=== PATIENT | male | born 1950 | race Caucasian/White ===

== ENCOUNTER → 2017-08-11 | Outpatient (CLI) | payer MEDICARE ==
--- NOTE | 2017-08-11 18:00 | Diagnostic Imaging Report ---
Examination: MRI of the Brain without Contrast History: Right eye vision loss for 2 weeks ago, Parkinson's. Comparison studies: None Technique: Sagittal T2; axial DWI, FLAIR, MPGR, T1, Coronal FLAIR. Intravenous contrast: None Findings: Scalp: Normal in signal . No masses . Bone marrow: Normal in signal intensity. Extra-axial: No masses or fluid collections. Brain sulci: Mildly prominent. Ventricles: Mild compensatory dilatation. No hydrocephalus. Parenchyma: Minimal confluent periventricular and scattered foci of T2 FLAIR hyperintensity within the bilateral supratentorial white matter and suraj are mild chronic small vessel ischemic changes. No masses, hemorrhage, acute or chronic cortical ischemic insults. Suprasellar region: No abnormalities. Craniocervical junction: No abnormalities. Patent foramen magnum. No Chiari one malformation. Vessels: Normal flow-voids in the arteries and sinuses. Orbits: The orbits are normal. Incidental: Minimal mucosal thickening involving the bilateral ethmoid air cells. IMPRESSION: 1. No intracranial hemorrhage, acute infarct, mass or hydrocephalus. 2. Mild chronic small vessel ischemic changes. 3. Mild generalized intracranial volume loss which is normal for patient's age. The images and preliminary report were reviewed and signed by Dr. Kelsie Crouch, neuroradiology faculty, on 08/11/2017 at 2004 hours. Signed by: Dr. Kelsie Crouch M.D. on 08/11/2017 8:06 PM
== END ==
LOC: CARD 14:36
PROVIDERS: ATTEND Family Medicine
DX: Z13.6 Encounter for screening for cardiovascular disorders (principal); H54.61 Unqualified visual loss, right eye, normal vision left eye
CPT/HCPCS: 70551; 93880

== ENCOUNTER → 2017-09-09 | Outpatient (CLI) | payer MEDICARE ==
[~2017-09-09] MED LIST: IOPAMIDOL 370 MG/ML 200 ML INFUS..BTL INJ ONE; SODIUM CHLORIDE 0.9% 50ML 100 ML ONE
[2017-09-09 10:18] LABS: BLOOD UREA NITROGEN 13 mg/dL (7-26); BUN/CREATININE RATIO 12 (6-25); CREATININE, SERUM 1.09 mg/dL (0.72-1.25); EST GLOMERULAR FILTRATION RATE > 60 ML/MIN (60-)
--- NOTE | 2017-09-09 11:38 | Diagnostic Imaging Report ---
History:Right optic nerve cisternal, Comparison studies:None Technique: Axial images were obtained from the thoracic inlet. Coronal and sagittal images reconstructed from the axial data. Intravenous contrast: 100 cc of Omnipaque 300. Findings: Percentage of stenosis will be based on the NASCET criteria Aortic arch and major vessels: Patent. No abnormalities. Common origin of the brachiocephalic trunk and left common carotid artery. Common carotid arteries: Patent. No abnormalities. Right internal carotid artery: Patent. No abnormalities. Left internal carotid artery: Patent. No abnormalities. . Right vertebral artery: Patent. Nonstenotic atherosclerotic calcification of the left internal carotid artery ophthalmic segment. Normal opacification of the bilateral ophthalmic arteries Left vertebral artery: Dominant left. Diminutive right vertebral artery which terminates in PICA Basilar artery: Patent. No abnormalities. Posterior cerebral arteries: Patent. No abnormalities. Anatomical variants: Acom: Patent . Pcoms: Not visualized. Vertebral arteries: Dominant left Facet hypertrophy and uncinate process hypertrophy results in moderate foraminal narrowing at the mid cervical spine IMPRESSION: Cervical CTA: 1. No significant stenosis of the neck arteries Intracranial CTA: 1. No significant stenosis of the [place]. 2. 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 Signed by: DR Chris Willingham M.D. on 09/09/2017 11:35 AM
== END ==
LOC: CT 08:26
PROVIDERS: ATTEND Internal Medicine Cardiovascular Disease
DX: I63.9 Cerebral infarction, unspecified (principal)
CPT/HCPCS: 36415; 70496; 70498; 82565; 84520; Q9967